=== PATIENT | female | born 1965 | race Two or more races ===

== ENCOUNTER 2017-07-07 14:37 | Emergency (ER) | payer SELFPAY ==
[~2017-07-07] VITALS: Ht 165.1 cm; Wt 111.6 kg
[2017-07-07 15:33] LABS: Basophils # (auto) 0.1 uL; Basophils % (auto) 1.1 % (0.0-2.0); Eosinophils # (auto) 0.1 uL; Eosinophils % (auto) 1.4 % (0.0-7.0); Hematocrit 44.5 % (36.0-46.0); Hemoglobin 14.7 g/dL (12.2-16.2); Lymphocytes # (auto) 2.2 uL; Lymphocytes % (auto) 25.6 % (10.0-50.0); Mean Corpuscular Hemoglobin 28.9 pg (28.0-32.0); Mean Corpuscular Hgb Conc. 33.1 g/dL (32.0-36.0); Mean Corpuscular Volume 87.3 fL (80.0-100.0); Mean Platelet Volume 7.3 fL (6.9-10.8); Monocytes # (auto) 0.4 uL; Monocytes % (auto) 4.2 % (0.0-12.0); Neutrophils # (auto) 5.7 uL; Neutrophils % (auto) 67.7 % (37.0-80.0); Nucleated Red Blood Cells % 0.1 %; Platelet Count (auto) 293 10^3/uL (140-450); Red Cell Distribution Width 14.2 % (11.8-14.3); White Blood Cell 8.5 10^3/uL (4.4-10.8)
[2017-07-07 16:06] LABS: Albumin 3.5 g/dL (3.4-5.0); Alkaline Phosphatase 115 U/L (45-117); Anion Gap 9 (5-15); Aspartate Aminotransferase 15 U/L (15-37); BUN/Creatinine Ratio 11.6; Bilirubin, Total 0.4 mg/dL (0.2-1.0); Blood Urea Nitrogen 8 mg/dL (7-18); Calcium 8.3 mg/dL (8.5-10.1); Carbon Dioxide 25 mmol/L (21-32); Chloride 107 mmol/L (98-107); GFR African American 116 mL/min; GFR Non-African American 96 mL/min; Glucose 88 mg/dL (74-106); Potassium 3.6 mmol/L (3.5-5.1); Sodium 141 mmol/L (136-145); Total Protein 7.7 g/dL (6.4-8.2)
[2017-07-07 16:15] VITALS: BP 136/61
== END 2017-07-07 16:15 | disposition left against medical advice (07) ==
LOC: ER 14:37
DX: R07.89 Other chest pain (principal); R51 Headache; R42 Dizziness and giddiness; Z53.21 Procedure and treatment not carried out due to patient leaving prior to being seen by health care provider
CPT/HCPCS: 36415; 71020; 80053; 84484; 85025; 93005

== ENCOUNTER 2017-10-03 10:30 | Emergency (ER) | payer SELFPAY ==
[~2017-10-03] VITALS: Ht 162.6 cm; Wt 102.5 kg
[2017-10-03 10:55] VITALS: BP 141/79
[2017-10-03] MEDS ORDERED: KETOROLAC TROMETH 60MG/2ML VIAL IM ONE (14:00)
== END 2017-10-03 15:39 | disposition home or self-care (01) ==
LOC: ER 10:30
DX: S83.8X2A Sprain of other specified parts of left knee, initial encounter (principal); X50.0XXA Overexertion from strenuous movement or load, initial encounter; Y93.89 Activity, other specified; Y99.8 Other external cause status; Y92.89 Other specified places as the place of occurrence of the external cause
CPT/HCPCS: 73562; 96372; 99284; J1885